=== PATIENT | female | born 1975 | race Caucasian/White ===

== ENCOUNTER 2018-07-30 09:05 | Emergency (ER) | payer MEDICAID ==
[2018-07-30] MEDS: CYCLOBENZAPRINE 10 MG TAB PO (10:05)
[2018-07-30] MEDS: KETOROLAC 60 MG INJ IM (10:05)
== END 2018-07-30 11:09 | disposition home or self-care (01) ==
LOC: FTE 11:09
DX: M54.5 Low back pain (principal)
CPT/HCPCS: 72100; 81025; 96372; 99284-25

== ENCOUNTER 2019-03-28 09:18 | Emergency (ER) | payer OTHER, MEDICAID ==
[2019-03-28] MEDS: KETOROLAC 60 MG INJ IM (10:36)
== END 2019-03-28 11:37 | disposition home or self-care (01) ==
LOC: FTE 11:37
DX: M25.511 Pain in right shoulder (principal)
CPT/HCPCS: 73030; 73030-RT; 81025; 96372; 99284-25